=== PATIENT | male | born 1970 ===

== ENCOUNTER 2019-02-01 12:07 | Emergency (ER) | payer OTHER, SELFPAY ==
[2019-02-01 12:30] VITALS: BP 135/94; PULSE 86; RESP 20; TEMP 36.6; O2SAT 99; BMI 28.0
--- NOTE | 2019-02-01 12:36 | DI.RAD.S_ITS ---
PROCEDURE: XR KNEE RT 3V INDICATIONS: red and swelling TECHNIQUE: 3 views of the knee were acquired. COMPARISON: None. FINDINGS: Bones: No fractures or dislocations. No suspicious bony lesions. Chronic fragmentation can be seen involving the tibial tuberosity. Soft tissues: There is a mild to moderate joint effusion. No suspicious soft tissue calcifications. IMPRESSION: [id number] joint effusion. No focal bony abnormality is seen. If there is strong clinical concern for a soft tissue infection, please consider a dedicated knee MRI without and with contrast for further evaluation (assuming that there is no contraindication). Dictated by: Morgan Rivers M.D. on 02/01/2019 at 12:09 Approved by: Morgan Rivers M.D. on 02/01/2019 at 12:10
--- NOTE | 2019-02-01 14:22 | ED_ITS ---
HPI - Extremity Problem <LUCIEN Seymour - Last Filed: 02/01/19 21:43> General Chief complaint: Extremity Problem,Nontraumatic Stated complaint: R LEG AND KNEE PAIN Time Seen by Provider: 02/01/19 13:57 Source: patient Mode of arrival: ambulatory Limitations: no limitations History of Present Illness HPI Narrative: 48-year-old male with history of bursitis on his left knee, presents emergency department complaining of right knee swelling and pain the past 2 days with associated night sweats. Patient states he woke up and his right knee was swollen, swelling gets worse after he has been walking on his knee throughout the day. Patient denies any trauma, fevers, chest pain, short ness of breath, abdominal pain, diarrhea, vomiting or syncope. 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 However, he states he has not been working the past few days. Patient also reports that he took 20 ibuprofen in the last 24-30 hours. Related Data Home Medications Medication Instructions Recorded Confirmed [BOOST] PO QDAY #0 09/28/17 ascorbic acid (vitamin C) 2 tab PO QDAY #0 09/28/17 calcium carbonate PO QDAY #0 09/28/17 glucosamine sulfate [Genicin] PO QDAY #0 09/28/17 multivitamin [Multiple Vitamins] 1 tab PO QDAY #0 09/28/17 Previous Rx's Medication Instructions Recorded metronidazole [Flagyl] 500 mg PO TID #30 09/28/17 sulfamethoxazole-trimethoprim 1 tab PO BID #20 tab 09/28/17 cephalexin [Keflex] 500 mg PO QID 5 Days #20 cap 02/01/19 Allergies Allergy/AdvReac Type Severity Reaction Status Date / Time ciprofloxacin [From CIPRO] AdvReac Unknown MUSCLE Unverified 02/01/19 12:30 ACHES Review of Systems <LUCIEN Seymour - Last Filed: 02/01/19 21:43> Review of Systems REVIEW OF SYSTEMS: GENERAL: Complains of chills, see HPI HENT: No head trauma. EYES: No double vision or vision loss. CARDIOVASCULAR: No chest pain or syncope. RESPIRATORY: No shortness of breath or cough. GASTROINTESTINAL: No nausea, vomiting, diarrhea, or constipation. GENITOURINARY: No flank pain or dysuria. MUSCULOSKELETAL: Complains of knee pain, see HPI. INTEGUMENTARY: No rash, lesions, or pruritus. NEURO: No numbness, tingling. PSYCH: No behavior or mood changes. PFSH <LUCIEN Seymour - Last Filed: 02/01/19 21:43> Medical History No significant medical problems (Acute) Social History Smoking Status: Former smoker Social History Smoking Status: Former smoker Exam <LUCIEN Seymour - Last Filed: 02/01/19 21:43> Initial Vital Signs Initial Vital Signs: Vital Signs Temperature 97.9 F 02/01/19 12:30 Pulse Rate 86 02/01/19 12:30 Respiratory Rate 20 02/01/19 12:30 Blood Pressure 135/94 H 02/01/19 12:30 Pulse Oximetry 99 02/01/19 12:30 PHYSICAL EXAMINATION: GENERAL: Well groomed, alert, and cooperative. Answers questions promptly and appropriately. Vital signs noted. HENT: Normocephalic, atraumatic. EYES: Symmetrical, sclera white, no periorbital swelling. CARDIOVASCULAR: S1 and S2 sounds normal. Regular rate and rhythm, no murmurs, clicks, or bruits. No pedal edema. RESPIRATORY: Normal respiratory rate, trachea midline, airway patent. No stridor, nasal flaring or accessory muscle use. Lungs are clear in all hu. MUSCULOSKELETAL: Increased swelling to the lower half of knee, slightly incre ased temperature to area with palpation, slightly increased redness to lower and medial aspect of right knee approximately [id number], this is mildly erythemic such as an inflammation not bright red such as in the case of cellulitis. Significant pain is felt over the area of the patellar tendon below patella bone. Patient is able to extend knee fully, patient is able to flex knee to about 90% the way of his other knee. However knee flexion increases pain. Patient able to ambulate without significant pain. EXTREMITIES: CMS intact. No pedal edema. SKIN: Warm, dry, soft, appropriate color for ethnicity. No lesions. NEURO: Alert and Oriented X 3. No sensory deficits. PSYCH: Appropriate affect and mood. <Maria Dolores Hayward DO - Last Filed: 02/05/19 01:20> Initial Vital Signs Initial Vital Signs: Vital Signs Temperature 97.9 F 02/01/19 12:30 Pulse Rate 86 02/01/19 12:30 Respiratory Rate 20 02/01/19 12:30 Blood Pressure 135/94 H 02/01/19 12:30 Pulse Oximetry 99 02/01/19 12:30 <Maria Dolores Hayward DO - Last Filed: 02/05/19 01:20> Joint Aspiration Joint Asp./Inject. 1: Time Out Performed: Yes Side of body: right Joint Aspirated: knee (right) Skin Prep: Chlorhexidine Local Anesthetic: lidocaine 1% Amount of anesthesia used (mL): 8 Needle Size Used: 18G Fluid Obtained: bloody Total fluid obtained (mL): 1 Patient Tolerated Procedure: Well Complications: none (pain improved after lidocaine) Course <LUCIEN Seymour - Last Filed: 02/01/19 21:43> Course Narrative: Dr. Hayward attempted aspiration of right knee, small amount of fluid was obtained. However, the simple coagulated and was unable to be tested in the lab. After consultation with an orthopedic, it is suspected that the main cause of symptoms are pre patellar bursitis. Patient instructed to use NSAIDs appropriately, elevate the leg, decreased activity, and follow up. IV antibiotics were given as well after discussion. Orders Ordered: Discontinued Medications Hydrocodone Bitart/Acetaminophen (Vicodin Prepack) 1 bottle MISC SEEINSTR ONE Stop: 02/01/19 17:23 Last Admin: 02/01/19 17:34 Dose: 1 bottle Cefazolin Sodium/Dextrose (Ancef) 1 gm in 50 mls @ 200 mls/hr IV NOW ONE Stop: 02/01/19 16:44 Last Infusion: 02/01/19 17:34 Dose: 0 mls/hr Admin: 02/01/19 16:52 Dose: 200 mls/hr Reevaluation(s) Reevaluation #1: Patient stated he was feeling slightly better after his stay. Consultations Consultation #1: Consultation with Orthopedic, Dr. Hope aspiration sample was lost. Consultation #2: Patient staffed with Dr. Hayward. Vital Signs - 8 hr 02/01/19 15:07 02/01/19 16:21 Pulse Rate 90 86 Respiratory Rate 16 17 Blood Pressure [Left Arm] 139/90 151/107 H Pulse Oximetry 98 100 <Maria Dolores Hayward DO - Last Filed: 02/05/19 01:20> Orders Ordered: Discontinued Medications Hydrocodone Bitart/Acetaminophen (Vicodin Prepack) 1 bottle MISC SEEINSTR ONE Stop: 02/01/19 17:23 Last Admin: 02/01/19 17:34 Dose: 1 bottle Cefazolin Sodium/Dextrose (Ancef) 1 gm in 50 mls @ 200 mls/hr IV NOW ONE Stop: 02/01/19 16:44 Last Infusion: 02/01/19 17:34 Dose: 0 mls/hr Admin: 02/01/19 16:52 Dose: 200 mls/hr Vital Signs - 8 hr 02/01/19 15:07 02/01/19 16:21 Pulse Rate 90 86 Respiratory Rate 16 17 Blood Pressure [Left Arm] 139/90 151/107 H Pulse Oximetry 98 100 MDM - Extremity (Nontraumatic) <LUCIEN Seymour - Last Filed: 02/01/19 21:43> Medical Records Attestation: I reviewed the patient's medical records. Lab Data Attestation: I reviewed the patient's lab results. Result diagrams: 02/01/19 14:40 02/01/19 14:40 Lab Results 02/01/19 02/01/19 Range/Units 14:40 14:40 WBC 14.0 H (4.5-11.0) X10^3/uL RBC 4.56 (4.5-5.9) X10^6/uL Hgb 15.2 (13.5-17.5) g/dL Hct 43.3 (41-53) % MCV 95.1 (80-100) fL MCH 33.3 (26-34) PG MCHC 35.1 (30-36) % RDW 12.3 (11.6-14.8) % Plt Count 148 L (150-400) X10^3/uL Neut % (Auto) 81.8 H (50-75) % Lymph % (Auto) 9.3 L (25-40) % [facility] % (Auto) 8.5 (3-14) % Eos % (Auto) 0.1 L (2-4) % Baso % (Auto) 0.3 (0-2) % Neut # (Auto) 96538 H (7636-4220) /uL Lymph # (Auto) 1300 (6217-3230) /uL [facility] # (Auto) 1200 H (0-900) /uL Eos # (Auto) 0 (0-450) /uL Baso # (Auto) 0 (0-100) /uL ESR 47 H (0-15) MM/HR Sodium 141 (137-145) mmol/L Potassium 4.2 (3.4-5.1) mmol/L Chloride 103 (98-107) mmol/L Carbon Dioxide 29 (22-32) mmol/L BUN 13 (9-20) mg/dL Creatinine 1.00 (0.66-1.25) mg/dL Estimated GFR > 60.0 (>60) mL/min BUN/Creatinine Ratio 13.0 (6-22) Glucose 109 H (70-100) mg/dL Calcium 9.2 (8.4-10.2) mg/dL Total Bilirubin 1.3 (0.2-1.3) mg/dL AST 37 (17-59) IU/L ALT 82 H (21-72) IU/L Alkaline Phosphatase 71 (38-126) U/L C-Reactive Protein 15.5 H (<1.0) mg/dL Total Protein 7.7 (6.3-8.2) g/dL Albumin 4.6 (3.5-5.0) g/dL Globulin 3.1 (1.7-4.1) g/dL Albumin/Globulin Ratio 1.5 (1.0-2.8) Imaging Data Knee Xr : Radiologist's impression: [address] [address] XRay Report Signed Patient: Carlos May JMR#: [id number] : 1970Acct:[id number] Age/Sex: 48 / MDate of Service: 02/01/19 Loc: ED Accession Number: [id number] Procedure: XR knee RT 3V Ordering Provider: Maria Dolores Hayward D.O. PROCEDURE: XR KNEE RT 3V INDICATIONS: red and swelling TECHNIQUE: 3 views of the knee were acquired. COMPARISON: None. FINDINGS: Bones: No fractures or dislocations. No suspicious bony lesions. Chronic fragmentation can be seen involving the tibial tuberosity. Soft tissues: There is a mild to moderate joint effusion. No suspicious soft tissue calcifications. IMPRESSION: Vauq-bf-[id number] joint effusion. No focal bony abnormality is seen. If there is strong clinical concern for a soft tissue infection, please consider a dedicated knee MRI without and with contrast for further evaluation (assuming that there is no contraindication). Dictated by: Morgan Rivers M.D. on 02/01/2019 at 12:09 Approved by: Morgan Rivers M.D. on 02/01/2019 at 12:10 [facility] Narrative Medical decision making narrative: Simple Prepatellar bursitis versus infected bursitis due to exam, slightly elevated white count, significant pain on the patella tendon, inability to aspirate a lot of fluid with joint aspiration, no significant decreased range of motion, and complains of sweats. However patient lacks fever, or other systemic symptoms, surrounding injury is not hyper erythematous so possibly less likely a severe infection such as septic joint. After consultation with Orthopedic, I was instructed to administer 1 dose of IV antibiotics and send the patient home on Keflex. Strict instructions were given to patient take answers appropriately, elevate leg, decreased kneeling, and see close follow-up. Strict return precautions were given for increasing symptoms or fevers. <Maria Dolores Hayward, DO - Last Filed: 02/05/19 01:20> Lab Data Lab Results 02/01/19 02/01/19 Range/Units 14:40 14:40 WBC 14.0 H (4.5-11.0) X10^3/uL RBC 4.56 (4.5-5.9) X10^6/uL Hgb 15.2 (13.5-17.5) g/dL Hct 43.3 (41-53) % MCV 95.1 (80-100) fL MCH 33.3 (26-34) PG MCHC 35.1 (30-36) % RDW 12.3 (11.6-14.8) % Plt Count 148 L (150-400) X10^3/uL Neut % (Auto) 81.8 H (50-75) % Lymph % (Auto) 9.3 L (25-40) % [facility] % (Auto) 8.5 (3-14) % Eos % (Auto) 0.1 L (2-4) % Baso % (Auto) 0.3 (0-2) % Neut # (Auto) 61428 H (2107-6523) /uL Lymph # (Auto) 1300 (3680-6199) /uL [facility] # (Auto) 1200 H (0-900) /uL Eos # (Auto) 0 (0-450) /uL Baso # (Auto) 0 (0-100) /uL ESR 47 H (0-15) MM/HR Sodium 141 (137-145) mmol/L Potassium 4.2 (3.4-5.1) mmol/L Chloride 103 (98-107) mmol/L Carbon Dioxide 29 (22-32) mmol/L BUN 13 (9-20) mg/dL Creatinine 1.00 (0.66-1.25) mg/dL Estimated GFR > 60.0 (>60) mL/min BUN/Creatinine Ratio 13.0 (6-22) Glucose 109 H (70-100) mg/dL Calcium 9.2 (8.4-10.2) mg/dL Total Bilirubin 1.3 (0.2-1.3) mg/dL AST 37 (17-59) IU/L ALT 82 H (21-72) IU/L Alkaline Phosphatase 71 (38-126) U/L C-Reactive Protein 15.5 H (<1.0) mg/dL Total Protein 7.7 (6.3-8.2) g/dL Albumin 4.6 (3.5-5.0) g/dL Globulin 3.1 (1.7-4.1) g/dL Albumin/Globulin Ratio 1.5 (1.0-2.8) MDM Narrative Medical decision making narrative: Patient was evaluated, HPI and physical exam reviewed and patient was examined by myself. His labs in history were concerning for septic arthritis all potential for a bursitis as well. Patient had only very small amount of fluid out. It was sent to the lab but there and issue and they could not perform the Gram stain and the the fluid which was bloody was clotted for the cell count. Discussed with the on-call orthopedic surgery who suspects more of a bursitis and recommends antibiotics orally and follow-up. Patient is comfortable with the plan. Signs and symptoms and reasons to return discussed. Discharge Plan Departure Patient Disposition: Home Clinical Impression: Patellar bursitis of right knee Discharge Date/Time: 02/01/19 17:41 Interventions: ED Discharge Assessment Last Done: 02/01/19 17:40 Instructions: DI for Bursitis, DI for Knee Pain Activity Restrictions/Additional Instructions: Thank you for entrusting me with your care today. As discussed, it is possible that you may have bursitis which is the swelling of a small sac underneath you're tendon of your knee. Based on your labs it is hard to conclude if this is infected, however please take the prescribed antibiotics as directed until you are advised otherwise by follow-up. Take ibuprofen 600mg every 6 hours for the next 4 days, elevate the leg as much as possible, ice leg as much as possible. Return to the emergency department if he develops increased redness, fevers, chills, nausea, vomiting, or increased of significant pain, or worsening range of motion. Follow-up with an orthopedic in the next few days. Prescriptions: New cephalexin [Keflex] 500 mg capsule 500 mg PO QID 5 Days Qty: 20 RF: 0 No Action glucosamine sulfate [Genicin] 500 mg capsule PO QDAY Qty: 0 RF: 0 [BOOST] PO QDAY Qty: 0 RF: 0 multivitamin [Multiple Vitamins] 1 EACH tablet 1 tab PO QDAY Qty: 0 RF: 0 calcium carbonate 600 mg calcium (1,500 mg) tablet PO QDAY Qty: 0 RF: 0 ascorbic acid (vitamin C) 500 mg tablet 2 tab PO QDAY Qty: 0 RF: 0 metronidazole [Flagyl] 500 MG tablet 500 mg PO TID Qty: 30 RF: 0 sulfamethoxazole-trimethoprim 800 MG/160 MG tablet 1 tab PO BID Qty: 20 RF: 0 Referrals: Natasha Hope MD [Physician] - <Maria Dolores Hayward DO - Last Filed: 02/05/19 01:20> Cosign ED Attending Cosignature Attestation: I was immediately available in the department for consultation, patient seen by myself. This documentation has been reviewed and I agree with assessment and plan. Supervised by Maria Dolores Hayward DO
[2019-02-01 14:45] LABS: Add Manual Diff / Slide Review NO; Basophils Absolute Auto 0 /uL (0-100); Basophils Percent Auto 0.3 % (0-2); Eosinophils Absolute Auto 0 /uL (0-450); Eosinophils Percent Auto 0.1 % (2-4); Hematocrit 43.3 % (41-53); Hemoglobin 15.2 g/dL (13.5-17.5); Lymphocytes Absolute Auto 1300 /uL (1100-4500); Lymphocytes Percent Auto 9.3 % (25-40); Mean Corpuscular HGB Conc 35.1 % (30-36); Mean Corpuscular Hemoglobin 33.3 PG (26-34); Mean Corpuscular Volume 95.1 fL (80-100); Monocytes Absolute Auto 1200 /uL (0-900); Monocytes Percent Auto 8.5 % (3-14); Neutrophils Absolute Auto 11400 /uL (1500-7000); Neutrophils Percent Auto 81.8 % (50-75); Platelet Count 148 X10^3/uL (150-400); Red Blood Cell Count 4.56 X10^6/uL (4.5-5.9); Red Cell Distribution Width 12.3 % (11.6-14.8)
[2019-02-01 14:59] LABS: Alanine Aminotransferase 82 IU/L (21-72); Albumin 4.6 g/dL (3.5-5.0); Albumin Globulin Ratio 1.5 (1.0-2.8); Alkaline Phosphatase 71 U/L (38-126); Aspartate Aminotransferase 37 IU/L (17-59); Bilirubin Total 1.3 mg/dL (0.2-1.3); Blood Urea Nitrogen 13 mg/dL (9-20); Calcium 9.2 mg/dL (8.4-10.2); Carbon Dioxide 29 mmol/L (22-32); Chloride 103 mmol/L (98-107); Estimated Glomerular Filt Rate > 60.0 mL/min (>60); Globulin 3.1 g/dL (1.7-4.1); Glucose 109 mg/dL (70-100); HEMOLYSIS < 15 (0-50); Potassium 4.2 mmol/L (3.4-5.1); Sodium 141 mmol/L (137-145); Total Protein 7.7 g/dL (6.3-8.2)
[2019-02-01 15:04] LABS: Erythrocyte Sedimentation Rate 47 MM/HR (0-15)
[2019-02-01 15:07] VITALS: BP 139/90; PULSE 90; RESP 16; O2SAT 98
[2019-02-01 15:17] LABS: C-Reactive Protein Quant 15.5 mg/dL (<1.0)
--- NOTE | 2019-02-01 16:03 | PC.NURSE ---
knee tap/for fluids/
[2019-02-01 16:21] VITALS: BP 151/107; PULSE 86; RESP 17; O2SAT 100
[2019-02-01] MEDS: CEFAZOLIN 1 GM/50 ML FROZ.PIGGY IV (16:52)
[2019-02-01] MEDS: HYDROCODONE/ACET 5/325 PREPACK 1 BOTTLE MISC (17:34)
== END 2019-02-01 17:41 | disposition home or self-care (01) ==
PROVIDERS: Emergency Provider Nurse Practitioner
DX: M70.51 Other bursitis of knee, right knee (principal)
CPT/HCPCS: 20610; 36415; 73562; 80053; 85025; 85651; 86140; 96365; 99283; 99284

== ENCOUNTER 2019-02-06 16:26 | Emergency (ER) | payer OTHER, SELFPAY ==
[2019-02-06 16:32] VITALS: BP 149/97; PULSE 81; RESP 15; TEMP 36.6; O2SAT 99; BMI 27.1
--- NOTE | 2019-02-06 17:31 | DI.US.S_ITS ---
PROCEDURE: US PERIPH VENOUS LOW EXTREM RT INDICATIONS: rule out dvt TECHNIQUE: Real-time imaging, as well as color and pulse Doppler interrogation, were performed of the lower extremity deep veins from the inguinal ligament to the popliteal fossa. COMPARISON: None. FINDINGS: The right common femoral, femoral and popliteal veins are normally compressible, and free of intraluminal thrombus. Color and pulse Doppler demonstrate intraluminal flow. There is normal augmentation response to distal compression maneuver. IMPRESSION: No ultrasound evidence of deep venous thrombosis of the right lower extremity. Dictated by: Good Carias M.D. on 02/06/2019 at 18:58 Approved by: Good Carias M.D. on 02/06/2019 at 18:59
[2019-02-06 17:48] VITALS: BP 144/97; PULSE 80; RESP 15; TEMP 36.1; O2SAT 98
[2019-02-06 18:39] LABS: Add Manual Diff / Slide Review NO; Basophils Absolute Auto 100 /uL (0-100); Basophils Percent Auto 0.5 % (0-2); Eosinophils Absolute Auto 100 /uL (0-450); Hematocrit 45.1 % (41-53); Hemoglobin 15.6 g/dL (13.5-17.5); Lymphocytes Absolute Auto 1500 /uL (1100-4500); Lymphocytes Percent Auto 14.3 % (25-40); Mean Corpuscular HGB Conc 34.6 % (30-36); Mean Corpuscular Hemoglobin 32.9 PG (26-34); Mean Corpuscular Volume 95.1 fL (80-100); Monocytes Absolute Auto 600 /uL (0-900); Monocytes Percent Auto 5.5 % (3-14); Neutrophils Absolute Auto 8100 /uL (1500-7000); Neutrophils Percent Auto 78.7 % (50-75); Platelet Count 260 X10^3/uL (150-400); Red Blood Cell Count 4.74 X10^6/uL (4.5-5.9); Red Cell Distribution Width 11.8 % (11.6-14.8); White Blood Cell Count 10.3 X10^3/uL (4.5-11.0)
[2019-02-06] MEDS: IBUPROFEN 400 MG TABLET 800 MG PO (18:43)
[2019-02-06 18:56] LABS: Erythrocyte Sedimentation Rate 50 MM/HR (0-15)
[2019-02-06 18:59] LABS: Alanine Aminotransferase 148 IU/L (21-72); Albumin 4.6 g/dL (3.5-5.0); Albumin Globulin Ratio 1.3 (1.0-2.8); Alkaline Phosphatase 86 U/L (38-126); Aspartate Aminotransferase 36 IU/L (17-59); BUN Creatinine Ratio 16.7 (6-22); Bilirubin Total 0.7 mg/dL (0.2-1.3); Blood Urea Nitrogen 15 mg/dL (9-20); C-Reactive Protein Quant 3.4 mg/dL (<1.0); Calcium 9.9 mg/dL (8.4-10.2); Carbon Dioxide 27 mmol/L (22-32); Chloride 102 mmol/L (98-107); Estimated Glomerular Filt Rate > 60.0 mL/min (>60); Globulin 3.5 g/dL (1.7-4.1); Glucose 89 mg/dL (70-100); HEMOLYSIS < 15 (0-50); Potassium 4.1 mmol/L (3.4-5.1); Sodium 139 mmol/L (137-145); Total Protein 8.1 g/dL (6.3-8.2)
--- NOTE | 2019-02-06 20:03 | ED.EXTPRO ---
HPI - Extremity Problem General Chief complaint: Extremity Problem,Nontraumatic Stated complaint: right leg pain,sent for US, R/O blood clot Time Seen by Provider: 02/06/19 18:00 Source: patient Mode of arrival: ambulatory Limitations: no limitations History of Present Illness HPI Narrative: The patient sustained a laceration to her lower lip. She also has superficial injuries to both hands. Her 15 lb dog was attacked by a larger dogs. Her dog in trying to escape the large dogs bit her and agitation. This incident happened about 4:30 p.m. today. Her dog required surgery. The patient is now coming in for her evaluation. She has abrasion contusion to the lower lip. She has no intraoral injury. She has no other facial injury or neck injury. She has injuries to both hands is noted. Her tetanus is up-to-date. Related Data Home Medications Medication Instructions Recorded Confirmed [BOOST] PO QDAY #0 09/28/17 ascorbic acid (vitamin C) 2 tab PO QDAY #0 09/28/17 calcium carbonate PO QDAY #0 09/28/17 glucosamine sulfate [Genicin] PO QDAY #0 09/28/17 multivitamin [Multiple Vitamins] 1 tab PO QDAY #0 09/28/17 Previous Rx's Medication Instructions Recorded metronidazole [Flagyl] 500 mg PO TID #30 09/28/17 sulfamethoxazole-trimethoprim 1 tab PO BID #20 tab 09/28/17 Allergies Allergy/AdvReac Type Severity Reaction Status Date / Time ciprofloxacin [From CIPRO] AdvReac Unknown MUSCLE Verified 02/06/19 16:32 ACHES Review of Systems Review of Systems ROS Unobtainable: All systems reviewed & are unremarkable except as noted in HPI and below Constitutional Denies fatigue and Denies fever(s) Comments: No additional injuries Eyes Comments: No trauma. No visual changes. ENT Comments: Lower lip injury. No other ENT complaints. Cardiovascular Denies chest pain Integumentary/Breasts Comments: Injuries as noted, no chronic problems. Endocrine Denies fatigue [facility] Medical History (Updated 02/06/19 @ 20:06 by Mustapha Olson MD) History of diverticulitis (Acute) No significant medical problems (Acute) Social History Smoking Status: Former smoker Social History Smoking Status: Former smoker Exam Initial Vital Signs Initial Vital Signs: Vital Signs Temperature 97.8 F 02/06/19 16:32 Pulse Rate 81 02/06/19 16:32 Respiratory Rate 15 02/06/19 16:32 Blood Pressure 149/97 H 02/06/19 16:32 Pulse Oximetry 99 02/06/19 16:32 Const General: cooperative, healthy appearing and comfortable [facility] Head: normocephalic Face and sinus: face symmetric and no abrasions Mouth: tongue normal, oropharynx normal, lip abnormal (Abrasion across the left side of the lower lip) and other (1 cm laceration across the mid lower lip, crossing vermilion border. ) Teeth and gingiva: dentition normal Eyes General: appearance normal, both eyes and all related structures Neck Neck: normal visual inspection, trachea midline, No lymphadenopathy and No JVD Skin Other: Minor abrasions to left hand and right hand. No dysfunction of the hands. Course Orders Ordered: ED Orders 02/06/19 17:31 US periph venous low extrem rt Stat 02/06/19 18:31 C-Reactive Protein Quant Stat Complete Blood Count AUTO DIFF Stat Comprehensive Metabolic Panel Stat Erythrocyte Sedimentation Rate Stat Discontinued Medications Ibuprofen (Advil) 800 mg PO NOW ONE Stop: 02/06/19 18:43 Last Admin: 02/06/19 18:43 Dose: 800 mg Vital Signs - 8 hr 02/06/19 16:32 02/06/19 17:48 Temperature 97.8 F 97.0 F L Pulse Rate 81 80 Respiratory Rate 15 15 Blood Pressure 149/97 H Blood Pressure [Left Arm] 144/97 H Pulse Oximetry 99 98 MDM - Extremity (Nontraumatic) Lab Data Result diagrams: 02/06/19 18:31 02/06/19 18:31 Lab Results 02/06/19 02/06/19 Range/Units 18:31 18:31 WBC 10.3 (4.5-11.0) X10^3/uL RBC 4.74 (4.5-5.9) X10^6/uL Hgb 15.6 (13.5-17.5) g/dL Hct 45.1 (41-53) % MCV 95.1 (80-100) fL MCH 32.9 (26-34) PG MCHC 34.6 (30-36) % RDW 11.8 (11.6-14.8) % Plt Count 260 (150-400) X10^3/uL Neut % (Auto) 78.7 H (50-75) % Lymph % (Auto) 14.3 L (25-40) % [place] % (Auto) 5.5 (3-14) % Eos % (Auto) 1.0 L (2-4) % Baso % (Auto) 0.5 (0-2) % Neut # (Auto) 8100 H (2177-7889) /uL Lymph # (Auto) 1500 (6464-9107) /uL [place] # (Auto) 600 (0-900) /uL Eos # (Auto) 100 (0-450) /uL Baso # (Auto) 100 (0-100) /uL ESR 50 H (0-15) MM/HR Sodium 139 (137-145) mmol/L Potassium 4.1 (3.4-5.1) mmol/L Chloride 102 (98-107) mmol/L Carbon Dioxide 27 (22-32) mmol/L BUN 15 (9-20) mg/dL Creatinine 0.90 (0.66-1.25) mg/dL Estimated GFR > 60.0 (>60) mL/min BUN/Creatinine Ratio 16.7 (6-22) Glucose 89 (70-100) mg/dL Calcium 9.9 (8.4-10.2) mg/dL Total Bilirubin 0.7 (0.2-1.3) mg/dL AST 36 (17-59) IU/L ALT 148 H (21-72) IU/L Alkaline Phosphatase 86 (38-126) U/L C-Reactive Protein 3.4 H (<1.0) mg/dL Total Protein 8.1 (6.3-8.2) g/dL Albumin 4.6 (3.5-5.0) g/dL Globulin 3.5 (1.7-4.1) g/dL Albumin/Globulin Ratio 1.3 (1.0-2.8) Discharge Plan Departure Patient Disposition: Home Clinical Impression: Patellar bursitis of right knee Instructions: How To Perform RICE (Rest, Ice, Compress, Elevate) Activity Restrictions/Additional Instructions: Please follow up with orthopedics as we discussed. Please use rest ice compression elevation. Please come back to the emergency department for any decreased range of motion, high fever, signs of systemic illness or acute concerns. Today your ultrasound came back negative for clot. Prescriptions: No Action glucosamine sulfate [Genicin] 500 mg capsule PO QDAY Qty: 0 RF: 0 [BOOST] PO QDAY Qty: 0 RF: 0 multivitamin [Multiple Vitamins] 1 EACH tablet 1 tab PO QDAY Qty: 0 RF: 0 calcium carbonate 600 mg calcium (1,500 mg) tablet PO QDAY Qty: 0 RF: 0 ascorbic acid (vitamin C) 500 mg tablet 2 tab PO QDAY Qty: 0 RF: 0 metronidazole [Flagyl] 500 MG tablet 500 mg PO TID Qty: 30 RF: 0 sulfamethoxazole-trimethoprim 800 MG/160 MG tablet 1 tab PO BID Qty: 20 RF: 0
[2019-02-06 20:09] VITALS: BP 159/99; PULSE 87; RESP 16; O2SAT 96
--- NOTE | 2019-02-06 20:09 | ED_ITS ---
HPI - Extremity Problem General Chief complaint: Extremity Problem,Nontraumatic Stated complaint: right leg pain,sent for US, R/O blood clot Time Seen by Provider: 02/06/19 18:00 Source: patient Mode of arrival: ambulatory Limitations: no limitations History of Present Illness HPI Narrative: The patient sustained a laceration to her lower lip. She also has superficial injuries to both hands. Her 15 lb dog was attacked by a larger dogs. Her dog in trying to escape the large dogs bit her and agitation. This incident happened about 4:30 p.m. today. Her dog required surgery. The patient is now coming in for her evaluation. She has abrasion contusion to the lower lip. She has no intraoral injury. She has no other facial injury or neck injury. She has injuries to both hands is noted. Her tetanus is up-to-date. Related Data Home Medications Medication Instructions Recorded Confirmed [BOOST] PO QDAY #0 09/28/17 ascorbic acid (vitamin C) 2 tab PO QDAY #0 09/28/17 calcium carbonate PO QDAY #0 09/28/17 glucosamine sulfate [Genicin] PO QDAY #0 09/28/17 multivitamin [Multiple Vitamins] 1 tab PO QDAY #0 09/28/17 Previous Rx's Medication Instructions Recorded metronidazole [Flagyl] 500 mg PO TID #30 09/28/17 sulfamethoxazole-trimethoprim 1 tab PO BID #20 tab 09/28/17 Allergies Allergy/AdvReac Type Severity Reaction Status Date / Time ciprofloxacin [From CIPRO] AdvReac Unknown MUSCLE Verified 02/06/19 16:32 ACHES Review of Systems Review of Systems ROS Unobtainable: All systems reviewed & are unremarkable except as noted in HPI and below Constitutional Denies fatigue and Denies fever(s) Comments: No additional injuries Eyes Comments: No trauma. No visual changes. ENT Comments: Lower lip injury. No other ENT complaints. Cardiovascular Denies chest pain Integumentary/Breasts Comments: Injuries as noted, no chronic problems. Endocrine Denies fatigue [facility] Medical History (Updated 02/06/19 @ 20:06 by Mustapha Olson MD) History of diverticulitis (Acute) No significant medical problems (Acute) Social History Smoking Status: Former smoker Social History Smoking Status: Former smoker Exam Initial Vital Signs Initial Vital Signs: Vital Signs Temperature 97.8 F 02/06/19 16:32 Pulse Rate 81 02/06/19 16:32 Respiratory Rate 15 02/06/19 16:32 Blood Pressure 149/97 H 02/06/19 16:32 Pulse Oximetry 99 02/06/19 16:32 Const General: cooperative, healthy appearing and comfortable [facility] Head: normocephalic Face and sinus: face symmetric and no abrasions Mouth: tongue normal, oropharynx normal, lip abnormal (Abrasion across the left side of the lower lip) and other (1 cm laceration across the mid lower lip, crossing flagman ssing vermilion border. ) Teeth and gingiva: dentition normal Eyes General: appearance normal, both eyes and all related structures Neck Neck: normal visual inspection, trachea midline, No lymphadenopathy and No JVD Skin Other: Minor abrasions to left hand and right hand. No dysfunction of the hands. Course Orders Ordered: ED Orders 02/06/19 17:31 US periph venous low extrem rt Stat 02/06/19 18:31 C-Reactive Protein Quant Stat Complete Blood Count AUTO DIFF Stat Comprehensive Metabolic Panel Stat Erythrocyte Sedimentation Rate Stat Discontinued Medications Ibuprofen (Advil) 800 mg PO NOW ONE Stop: 02/06/19 18:43 Last Admin: 02/06/19 18:43 Dose: 800 mg Vital Signs - 8 hr 02/06/19 16:32 02/06/19 17:48 Temperature 97.8 F 97.0 F L Pulse Rate 81 80 Respiratory Rate 15 15 Blood Pressure 149/97 H Blood Pressure [Left Arm] 144/97 H Pulse Oximetry 99 98 MDM - Extremity (Nontraumatic) Lab Data Result diagrams: 02/06/19 18:31 02/06/19 18:31 Lab Results 02/06/19 02/06/19 Range/Units 18:31 18:31 WBC 10.3 (4.5-11.0) X10^3/uL RBC 4.74 (4.5-5.9) X10^6/uL Hgb 15.6 (13.5-17.5) g/dL Hct 45.1 (41-53) % MCV 95.1 (80-100) fL MCH 32.9 (26-34) PG MCHC 34.6 (30-36) % RDW 11.8 (11.6-14.8) % Plt Count 260 (150-400) X10^3/uL Neut % (Auto) 78.7 H (50-75) % Lymph % (Auto) 14.3 L (25-40) % [place] % (Auto) 5.5 (3-14) % Eos % (Auto) 1.0 L (2-4) % Baso % (Auto) 0.5 (0-2) % Neut # (Auto) 8100 H (1390-0003) /uL Lymph # (Auto) 1500 (7705-2404) /uL [place] # (Auto) 600 (0-900) /uL Eos # (Auto) 100 (0-450) /uL Baso # (Auto) 100 (0-100) /uL ESR 50 H (0-15) MM/HR Sodium 139 (137-145) mmol/L Potassium 4.1 (3.4-5.1) mmol/L Chloride 102 (98-107) mmol/L Carbon Dioxide 27 (22-32) mmol/L BUN 15 (9-20) mg/dL Creatinine 0.90 (0.66-1.25) mg/dL Estimated GFR > 60.0 (>60) mL/min BUN/Creatinine Ratio 16.7 (6-22) Glucose 89 (70-100) mg/dL Calcium 9.9 (8.4-10.2) mg/dL Total Bilirubin 0.7 (0.2-1.3) mg/dL AST 36 (17-59) IU/L ALT 148 H (21-72) IU/L Alkaline Phosphatase 86 (38-126) U/L C-Reactive Protein 3.4 H (<1.0) mg/dL Total Protein 8.1 (6.3-8.2) g/dL Albumin 4.6 (3.5-5.0) g/dL Globulin 3.5 (1.7-4.1) g/dL Albumin/Globulin Ratio 1.3 (1.0-2.8) Discharge Plan Departure Patient Disposition: Home Clinical Impression: Patellar bursitis of right knee Instructions: How To Perform RICE (Rest, Ice, Compress, Elevate) Activity Restrictions/Additional Instructions: Please follow up with orthopedics as we discussed. Please use rest ice compression elevation. Please come back to the emergency department for any decreased range of motion, high fever, signs of systemic illness or acute concerns. Today your ultrasound came back negative for clot. Prescriptions: No Action glucosamine sulfate [Genicin] 500 mg capsule PO QDAY Qty: 0 RF: 0 [BOOST] PO QDAY Qty: 0 RF: 0 multivitamin [Multiple Vitamins] 1 EACH tablet 1 tab PO QDAY Qty: 0 RF: 0 calcium carbonate 600 mg calcium (1,500 mg) tablet PO QDAY Qty: 0 RF: 0 ascorbic acid (vitamin C) 500 mg tablet 2 tab PO QDAY Qty: 0 RF: 0 metronidazole [Flagyl] 500 MG tablet 500 mg PO TID Qty: 30 RF: 0 sulfamethoxazole-trimethoprim 800 MG/160 MG tablet 1 tab PO BID Qty: 20 RF: 0
--- NOTE | 2019-02-06 20:49 | ED_ITS ---
HPI - Extremity Problem <JARAD Fried-BC - Last Filed: 02/06/19 21:02> General Chief complaint: Extremity Problem,Nontraumatic Stated complaint: right leg pain,sent for US, R/O blood clot Time Seen by Provider: 02/06/19 18:00 Source: patient Mode of arrival: ambulatory Limitations: no limitations History of Present Illness HPI Narrative: The patient is a 48-year-old male who presents for chief complaint of right leg pain. He was evaluated this facility on February 01 and diagnosed with prepatellar bursitis. He is placed on Keflex. He presents after being seen by his orthopedist, Dr. Ramos who was concerned about swelling in his right lower leg and will like to have an ultrasound to rule out a DVT. He denies any fevers nausea vomiting or diarrhea. He states that the right redness is improving. He states that the swelling around his knee is improving. He is using ice and NSAIDs. Related Data Home Medications Medication Instructions Recorded Confirmed [BOOST] PO QDAY #0 09/28/17 ascorbic acid (vitamin C) 2 tab PO QDAY #0 09/28/17 calcium carbonate PO QDAY #0 09/28/17 glucosamine sulfate [Genicin] PO QDAY #0 09/28/17 multivitamin [Multiple Vitamins] 1 tab PO QDAY #0 09/28/17 Previous Rx's Medication Instructions Recorded metronidazole [Flagyl] 500 mg PO TID #30 09/28/17 sulfamethoxazole-trimethoprim 1 tab PO BID #20 tab 09/28/17 Allergies Allergy/AdvReac Type Severity Reaction Status Date / Time ciprofloxacin [From CIPRO] AdvReac Unknown MUSCLE Verified 02/06/19 16:32 ACHES Review of Systems <JARAD Fried-BC - Last Filed: 02/06/19 21:02> Review of Systems GENERAL: Denies chills, fatigue, malaise, fever, sweats. HEENT: Denies sinus pain, ear pain, sore throat, difficulty swallowing, dizzines s. RESPIRATORY: Denies dyspnea, cough, wheezing, hemoptysis, sputum. CARDIOVASCULAR: Denies chest pain, palpitations, orthopnea, edema, GASTROINTESTINAL: Denies nausea, vomiting, abdominal pain, diarrhea, constipation, melena. : Denies dysuria, frequency, incontinence, hematuria, urinary retention. MUSCULOSKELETAL: See HPI SKIN: Denies rash, skin lesions, or other NEUROLOGIC: Denies weakness, headache, numbness, change in speech, confusion, seizures, incoordination. PSYCHIATRIC: No concerning psychosocial issues. 12 point review of systems is negative except for those stated above PFSH <ANAM Fried - Last Filed: 02/06/19 21:02> Medical History (Updated 02/06/19 @ 20:07 by ANAM Fried) History of diverticulitis (Acute) No significant medical problems (Acute) Social History Smoking Status: Former smoker Social History Smoking Status: Former smoker Exam <ANAM Fried - Last Filed: 02/06/19 21:02> Narrative Exam Narrative: GENERAL: This is a well-nourished, well-developed patient, no acute distress HEAD: Atraumatic. Normocephalic. No temporal or scalp tenderness. EYES: Pupils equal round and reactive. Extraocular motions intact. No scleral icterus. No injection or drainage. ENT: Nose without bleeding, purulent drainage or septal hematoma. Throat without erythema, tonsillar hypertrophy or exudate. Uvula midline. Airway patent. NECK: Trachea midline. No JVD or lymphadenopathy. Supple, nontender, no meningeal signs. CARDIOVASCULAR: Regular rate and rhythm RESPIRATORY: Clear to auscultation. Breath sounds equal bilaterally. No wheezes, rales, or rhonchi. No cough. No increased respiratory effort. No accessory muscle use. GASTROINTESTINAL: Abdomen soft, non-tender, nondistended. No hepato- splenomegaly, or palpable masses. No guarding. EXTREMITIES: Swelling noted right knee. Positive pedal pulses bilaterally. No overlying erythema right knee. Negative Homans sign. Able to flex knee to 100?. BACK: Nontender without deformity or crepitance. No flank tenderness. NEURO: AOx3. SKIN: No overt erythema overlying right knee. Some ready appearance right knee. Initial Vital Signs Initial Vital Signs: Vital Signs Temperature 97.8 F 02/06/19 16:32 Pulse Rate 81 02/06/19 16:32 Respiratory Rate 15 02/06/19 16:32 Blood Pressure 149/97 H 02/06/19 16:32 Pulse Oximetry 99 02/06/19 16:32 <DO Shaina Alvarado Last Filed: 02/07/19 18:07> Initial Vital Signs Initial Vital Signs: Vital Signs Temperature 97.8 F 02/06/19 16:32 Pulse Rate 81 02/06/19 16:32 Respiratory Rate 15 02/06/19 16:32 Blood Pressure 149/97 H 02/06/19 16:32 Pulse Oximetry 99 02/06/19 16:32 Course <ANAM Fried - Last Filed: 02/06/19 21:02> Orders Ordered: Discontinued Medications Ibuprofen (Advil) 800 mg PO NOW ONE Stop: 02/06/19 18:43 Last Admin: 02/06/19 18:43 Dose: 800 mg Vital Signs - 8 hr 02/06/19 16:32 02/06/19 17:48 02/06/19 20:09 Temperature 97.8 F 97.0 F L Pulse Rate 81 80 87 Respiratory Rate 15 15 16 Blood Pressure 149/97 H Blood Pressure [Left Arm] 144/97 H 159/99 H Pulse Oximetry 99 98 96 <Maria Dolores Hayward DO - Last Filed: 02/07/19 18:07> Orders Ordered: Discontinued Medications Ibuprofen (Advil) 800 mg PO NOW ONE Stop: 02/06/19 18:43 Last Admin: 02/06/19 18:43 Dose: 800 mg Vital Signs - 8 hr 02/06/19 16:32 02/06/19 17:48 02/06/19 20:09 Temperature 97.8 F 97.0 F L Pulse Rate 81 80 87 Respiratory Rate 15 15 16 Blood Pressure 149/97 H Blood Pressure [Left Arm] 144/97 H 159/99 H Pulse Oximetry 99 98 96 MDM - Extremity (Nontraumatic) <ANAM Fried - Last Filed: 02/06/19 21:02> Lab Data Result diagrams: 02/06/19 18:31 02/06/19 18:31 Lab Results 02/06/19 02/06/19 Range/Units 18:31 18:31 WBC 10.3 (4.5-11.0) X10^3/uL RBC 4.74 (4.5-5.9) X10^6/uL Hgb 15.6 (13.5-17.5) g/dL Hct 45.1 (41-53) % MCV 95.1 (80-100) fL MCH 32.9 (26-34) PG MCHC 34.6 (30-36) % RDW 11.8 (11.6-14.8) % Plt Count 260 (150-400) X10^3/uL Neut % (Auto) 78.7 H (50-75) % Lymph % (Auto) 14.3 L (25-40) % [place] % (Auto) 5.5 (3-14) % Eos % (Auto) 1.0 L (2-4) % Baso % (Auto) 0.5 (0-2) % Neut # (Auto) 8100 H (1359-6446) /uL Lymph # (Auto) 1500 (0783-0753) /uL [place] # (Auto) 600 (0-900) /uL Eos # (Auto) 100 (0-450) /uL Baso # (Auto) 100 (0-100) /uL ESR 50 H (0-15) MM/HR Sodium 139 (137-145) mmol/L Potassium 4.1 (3.4-5.1) mmol/L Chloride 102 (98-107) mmol/L Carbon Dioxide 27 (22-32) mmol/L BUN 15 (9-20) mg/dL Creatinine 0.90 (0.66-1.25) mg/dL Estimated GFR > 60.0 (>60) mL/min BUN/Creatinine Ratio 16.7 (6-22) Glucose 89 (70-100) mg/dL Calcium 9.9 (8.4-10.2) mg/dL Total Bilirubin 0.7 (0.2-1.3) mg/dL AST 36 (17-59) IU/L ALT 148 H (21-72) IU/L Alkaline Phosphatase 86 (38-126) U/L C-Reactive Protein 3.4 H (<1.0) mg/dL Total Protein 8.1 (6.3-8.2) g/dL Albumin 4.6 (3.5-5.0) g/dL Globulin 3.5 (1.7-4.1) g/dL Albumin/Globulin Ratio 1.3 (1.0-2.8) Imaging Data Venous US: Radiologist's impression: [address] [address] Ultrasound Report Signed Patient: Carlos May JMR#: [id number] : 1970Acct:[id number] Age/Sex: 48 / MDate of Service: 02/06/19 Loc: ED Accession Number: [id number] Procedure: US periph venous low extrem rt Ordering Provider: Maria Dolores Hayward D.O. PROCEDURE: US PERIPH VENOUS LOW EXTREM RT INDICATIONS: rule out dvt TECHNIQUE: Real-time imaging, as well as color and pulse Doppler interrogation, were performed of the lower extremity deep veins from the inguinal ligament to the popliteal fossa. COMPARISON: None. FINDINGS: The right common femoral, femoral and popliteal veins are normally compressible, and free of intraluminal thrombus. Color and pulse Doppler demonstrate intraluminal flow. There is normal augmentation response to distal compression maneuver. IMPRESSION: No ultrasound evidence of deep venous thrombosis of the right lower extremity. Dictated by: Good Carias M.D. on 02/06/2019 at 18:58 Approved by: Good Carias M.D. on 02/06/2019 at 18:59 [facility] Narrative Medical decision making narrative: The patient is a 48-year-old male who presents with a chief complaint of swelling was right lower leg. He has been recently treated for prepatellar bursitis, placed on Keflex. Dr Hayward evaluated the patient's knee upon presentation as she evaluated last week. His white blood cell count is down trending, his ESR is slightly increased, and his CRP is decreased significantly. I did speak with Dr. Hope regarding the patient, states that the only way to rule out a septic arthritis as a knee tap. However the patient declines this procedure and refuses stating is too painful the other day. He states he would rather his orthopedist do it. His ultrasound is negative for any blood clots. It is reassuring that his white blood cell count was decreasing, he has no signs of systemic illness. I discussed at length coming back to the ER for any acute concerns such as fever, inability keep down fluids etc. Patient states he will follow up with his orthopedist as scheduled. No questions or concerns upon discharge. <Maria Dolores Hayward DO - Last Filed: 02/07/19 18:07> Lab Data Lab Results 02/06/19 02/06/19 Range/Units 18:31 18:31 WBC 10.3 (4.5-11.0) X10^3/uL RBC 4.74 (4.5-5.9) X10^6/uL Hgb 15.6 (13.5-17.5) g/dL Hct 45.1 (41-53) % MCV 95.1 (80-100) fL MCH 32.9 (26-34) PG MCHC 34.6 (30-36) % RDW 11.8 (11.6-14.8) % Plt Count 260 (150-400) X10^3/uL Neut % (Auto) 78.7 H (50-75) % Lymph % (Auto) 14.3 L (25-40) % [place] % (Auto) 5.5 (3-14) % Eos % (Auto) 1.0 L (2-4) % Baso % (Auto) 0.5 (0-2) % Neut # (Auto) 8100 H (2990-6619) /uL Lymph # (Auto) 1500 (2801-5485) /uL [place] # (Auto) 600 (0-900) /uL Eos # (Auto) 100 (0-450) /uL Baso # (Auto) 100 (0-100) /uL ESR 50 H (0-15) MM/HR Sodium 139 (137-145) mmol/L Potassium 4.1 (3.4-5.1) mmol/L Chloride 102 (98-107) mmol/L Carbon Dioxide 27 (22-32) mmol/L BUN 15 (9-20) mg/dL Creatinine 0.90 (0.66-1.25) mg/dL Estimated GFR > 60.0 (>60) mL/min BUN/Creatinine Ratio 16.7 (6-22) Glucose 89 (70-100) mg/dL Calcium 9.9 (8.4-10.2) mg/dL Total Bilirubin 0.7 (0.2-1.3) mg/dL AST 36 (17-59) IU/L ALT 148 H (21-72) IU/L Alkaline Phosphatase 86 (38-126) U/L C-Reactive Protein 3.4 H (<1.0) mg/dL Total Protein 8.1 (6.3-8.2) g/dL Albumin 4.6 (3.5-5.0) g/dL Globulin 3.5 (1.7-4.1) g/dL Albumin/Globulin Ratio 1.3 (1.0-2.8) Discharge Plan Departure Patient Disposition: Home Clinical Impression: Patellar bursitis of right knee Discharge Date/Time: 02/06/19 20:16 Interventions: ED Discharge Assessment Last Done: 02/06/19 20:10 Instructions: How To Perform RICE (Rest, Ice, Compress, Elevate) Activity Restrictions/Additional Instructions: Please follow up with orthopedics as we discussed. Please use rest ice compression elevation. Please come back to the emergency department for any decreased range of motion, high fever, signs of systemic illness or acute concerns. Today your ultrasound came back negative for clot. Prescriptions: No Action glucosamine sulfate [Genicin] 500 mg capsule PO QDAY Qty: 0 RF: 0 [BOOST] PO QDAY Qty: 0 RF: 0 multivitamin [Multiple Vitamins] 1 EACH tablet 1 tab PO QDAY Qty: 0 RF: 0 calcium carbonate 600 mg calcium (1,500 mg) tablet PO QDAY Qty: 0 RF: 0 ascorbic acid (vitamin C) 500 mg tablet 2 tab PO QDAY Qty: 0 RF: 0 metronidazole [Flagyl] 500 MG tablet 500 mg PO TID Qty: 30 RF: 0 sulfamethoxazole-trimethoprim 800 MG/160 MG tablet 1 tab PO BID Qty: 20 RF: 0 <Maria Dolores Hayward DO - Last Filed: 02/07/19 18:07> Cosign ED Attending Cosignature Attestation: I was immediately available in the department for consultation, patient was re- evaluated. Knee appears improved from prior, continued swelling but erythema has resolved. Labs, etc reviewed and orthopedics recontacted for recommendations. This documentation has been reviewed and I agree with assessment and plan. Supervised by Maria Dolores Hayward DO
== END 2019-02-06 20:16 | disposition home or self-care (01) ==
PROVIDERS: Emergency Provider Nurse Practitioner Family
DX: M70.51 Other bursitis of knee, right knee (principal); Y99.0 Civilian activity done for income or pay
CPT/HCPCS: 36415; 80053; 85025; 85651; 86140; 93971; 99282; 99284

== ENCOUNTER → 2020-02-26 09:47 | Outpatient (CLI) | payer BC, SELFPAY ==
--- NOTE | 2020-02-26 | DI.US.S_ITS ---
PROCEDURE: US ABDOMEN COMPLETE INDICATIONS: [facility] LIVER [facility] STUDIES TECHNIQUE: Real-time scanning was performed of the abdominal and retroperitoneal organs, with image documentation. COMPARISON: [facility], CT, ABDOMEN/PELVIS WITH CONTRAST, 09/03/2017, 9:40. FINDINGS: Liver: The liver demonstrates normal size. The liver demonstrates generalized increased echogenicity. This decreases ultrasound sensitivity for detection of hepatic masses. Gallbladder: At the fundus of the gallbladder, there is abnormal thickening and irregularity seen. This can previously be seen by CT. No findings of gallstones or sludge are seen. The gallbladder wall otherwise is under. No specific pericholecystic fluid is seen. The sonographic Goldberg sign is negative. Biliary ducts: Intrahepatic bile ducts are non-dilated. Extrahepatic bile duct caliber measures 4 mm. Normal is 6-7 mm or less in diameter, or 10 mm or less post-cholecystectomy. Pancreas: Visualized portions of the pancreas are sonographically normal. Spleen: Spleen is normal in size and homogeneous in echotexture. Kidneys: Kidneys are normal in size and echotexture. Right kidney measures 11 cm long; left kidney measures 12.5 cm long. No hydronephrosis or nephrolithiasis. No solid masses. Aorta: Visualized aorta is normal in caliber at less than 3 cm. Iliacs: Proximal common iliac arteries are normal in caliber at less than 2.5 cm. IVC: Intrahepatic inferior vena cava is patent. Miscellaneous: No free abdominal fluid. IMPRESSION: Abnormal gallbladder, with focal wall thickening seen at the fundus. On the prior CT examination, this area appeared thickened and hyperenhancing. Differential diagnosis includes gallbladder neoplasm. Please consider surgical consultation. The liver demonstrates increased echogenicity. This finding is nonspecific, yet it is most commonly attributed to fatty infiltration. Dictated by: Morgan Rivers M.D. on 02/26/2020 at 10:10 Approved by: Morgan Rivers M.D. on 02/26/2020 at 10:12
== END ==
PROVIDERS: PCP Physician Assistant; Referring Provider Physician Assistant; Visit Provider Physician Assistant
DX: R94.5 Abnormal results of liver function studies (principal); K82.9 Disease of gallbladder, unspecified
CPT/HCPCS: 76700

== ENCOUNTER → 2020-07-30 12:34 | Outpatient (CLI) | payer BC, SELFPAY ==
[2020-07-30 13:01] LABS: COVID19 -Nasal RAPID Negative (Negative)
== END ==
PROVIDERS: PCP Physician Assistant; Visit Provider Physician Assistant
DX: Z20.822 Contact with and (suspected) exposure to COVID-19 (principal); J02.9 Acute pharyngitis, unspecified; R05 Cough; R52 Pain, unspecified
CPT/HCPCS: 87635